=== PATIENT | female | born 1970 | race Two or more races ===

== ENCOUNTER → 2017-02-11 | Outpatient (CLI) | payer OTHER | LOC: CIMAGING 15:03 | PROVIDERS: ATTEND Family Medicine | DX: M54.2 Cervicalgia (principal) | CPT/HCPCS: 72050-PO ==

== ENCOUNTER → 2017-03-13 | Outpatient (CLI) | payer OTHER | LOC: CIMAGING 10:26 | PROVIDERS: ATTEND Family Medicine | DX: R51 Headache (principal); M54.2 Cervicalgia; H93.19 Tinnitus, unspecified ear | CPT/HCPCS: 70450-PO ==

== ENCOUNTER → 2017-04-13 | Outpatient (CLI) | payer OTHER | LOC: FIMAGING 18:48 | PROVIDERS: ATTEND Family Medicine | DX: M48.061 Spinal stenosis, lumbar region without neurogenic claudication (principal); M53.86 Other specified dorsopathies, lumbar region ==

== ENCOUNTER → 2017-07-31 | Outpatient (CLI) | payer OTHER | LOC: BRMIMAGING 13:37 | PROVIDERS: ATTEND Family Medicine | DX: Z12.31 Encounter for screening mammogram for malignant neoplasm of breast (principal) ==

== ENCOUNTER → 2017-08-21 | Outpatient (CLI) | payer OTHER | LOC: BRMIMAGING 09:25 | PROVIDERS: ATTEND Family Medicine | DX: R92.8 Other abnormal and inconclusive findings on diagnostic imaging of breast (principal) ==